=== PATIENT | male | born 1995 | race Two or more races ===

== ENCOUNTER 2021-11-02 12:08 | Emergency (ER) | payer OTHER, BC ==
[~2021-11-02] VITALS: Ht 182.9 cm; Wt 88.5 kg
[~2021-11-02 12:08] MED LIST: CRUTCH4 USE
[2021-11-02] MEDS ORDERED: Voltaren100 GM TOP (13:15)
== END 2021-11-02 13:22 | disposition home or self-care (01) ==
LOC: ER 12:08
DX: M70.41 Prepatellar bursitis, right knee (principal)
CPT/HCPCS: 73562-RT